=== PATIENT | female | born 1930 | race Caucasian/White ===

== ENCOUNTER 2016-12-13 10:29 | Emergency (ER) | payer MEDICARE, BC ==
[~2016-12-13] VITALS: Ht 149.9 cm; Wt 60.5 kg
[~2016-12-13 10:29] MED LIST: ALEN70TA15 PO; ATOR10TA23 PO; HYDR25TA6 PO; METO50TA16 PO; OMEG1CAP2 PO; PANT40TA3 PO; SYN75 PO
[2016-12-13 10:33] VITALS: Ht 149.9 cm; Wt 60.5 kg
[2016-12-13 13:19] LABS: URINE BLOOD (Dip) POC Negative (NEGATIVE)
[2016-12-13] MEDS ORDERED: SOD CHLORIDE 0.9% 500 ML IV STA (13:21)
[2016-12-13 13:34] LABS: BASOPHILS % 0.3 % (0.0-2.0); EOSINOPHILS % 0.1 % (0.0-7.0); HEMATOCRIT 38.7 % (37.0-47.0); HEMOGLOBIN 12.8 g/dl (12.0-16.0); LYMPHOCYTES % 6.7 % (15.0-51.0); MEAN CORPUSCULAR HEMOGLOBIN 28.9 pg (29.0-33.0); MEAN CORPUSCULAR HGB CONC 33.1 g/dl (32.0-37.0); MEAN CORPUSCULAR VOLUME 87.4 fl (82.0-101.0); MEAN PLATELET VOLUME 9.6 fl (7.4-10.4); MONOCYTE # 0.4 10^3/ul (0.3-0.9); MONOCYTES % 2.6 % (0.0-11.0); NEUTROPHIL # 13.9 10^3/ul (1.6-7.5); NEUTROPHILS % 89.8 % (39.0-77.0); PLATELET COUNT 183 10^3/UL (140-415); RED BLOOD COUNT 4.43 10^6/ul (4.20-5.40); RED CELL DISTRIBUTION WIDTH 13.2 % (11.5-14.5); WHITE BLOOD COUNT 15.5 10^3/ul (4.8-10.8)
--- NOTE | 2016-12-13 13:34 | ERA ---
ER Documentation Chief Complaint Date/Time DATE: 12/13/16 TIME: 13:31 Chief Complaint dysuria x 10 days, taking macrobid, c/o chills and shaking this morning HPI This is a 86-year-old female who is currently being treated for a UTI diagnosed by urologist yesterday. She is only taking 1 dose of Macrobid last night as her first dose. The patient states she woke this morning and had some chills and thought she might be getting a fever so she took her temperature and it was "normal". She says her hands and feet feel cold. The patient is taking Synthroid for hypothyroidism. Patient also has a history of iron deficiency anemia. She did not have any chest pain shortness of breath no abdominal pain nausea vomiting diarrhea. She says she is constantly constipated, but had a normal bowel movement this morning. She denies any cough. She has no complaints of weakness or focal neurological complaints. The patient's mother is a physician and brought her in to be checked out to rule out sepsis ROS All systems reviewed and are negative except as per history of present illness. Medications Home Meds Reported Medications Metoprolol Succinate* (Toprol XL*) 50 Mg Tab.er.24h, 50 MG PO DAILY, TAB 06/01/14 Pantoprazole* (Protonix*) 40 Mg Tablet.dr, 40 MG PO DAILY, TAB 06/01/14 Levothyroxine Sodium* (Synthroid*) 75 Mcg Tablet, 75 MCG PO DAILY, TAB 06/01/14 [place]-3 Acid Ethyl Esters (Lovaza) 1 Gm Capsule, 4 GM PO DAILY, CAP 06/01/14 Alendronate Sodium (Fosamax) 70 Mg Tablet, 70 MG PO weekly-thursday03/23/12 Atorvastatin (Lipitor) 10 Mg Tablet, 10 MG PO HS 03/23/12 Hydrochlorothiazide (Hydrochlorothiazide) 25 Mg Tablet, 25 MG PO HS 03/23/12 Allergies Allergies: Coded Allergies: Penicillins (Verified Allergy, Intermediate, 06/01/14) Sulfa (Sulfonamide Antibiotics) (Verified Allergy, Intermediate, 06/01/14) PMhx/Soc History of Surgery: Yes (d&c feb 2012) Anesthesia Reaction: No Hx Neurological Disorder: No Hx Respiratory Disorders: Yes (asthma) Hx Cardiac Disorders: No Hx Psychiatric Problems: No Hx Miscellaneous Medical Probl: Yes (GI bleed and anemia in 2012) Hx Alcohol Use: No Hx Substance Use: No Hx Tobacco Use: No FmHx Family History: No coronary disease Physical Exam Vitals Vital Signs Date Time Temp Pulse Resp B/P Pulse Ox O2 Delivery O2 Flow Rate FiO2 12/13/16 10:33 98.3 106 18 141/63 98 Physical Exam Const: Well-developed, well-nourished Head: Atraumatic, normocephalic Eyes: Normal Conjunctiva, PERRLA, EOMI, normal sclera, no nystagmus ENT: Normal External Ears, Nose and Mouth, moist mucus membranes. Neck: Full range of motion. No meningismus, no lymphadenopathy. Resp: Clear to auscultation bilaterally, no wheezing, rhonchi, rales Cardio: Regular rate and rhythm, no murmurs, S1 S2 present Abd: Soft, non tender x 4, non distended. Normal bowel sounds, no guarding or rebound, no pulsitile abdominal masses or bruits Skin: No petechiae or rashes, no ecchymosis , no maculopapular rash Back: No midline or flank tenderness Ext: No cyanosis, or edema, FROM x 4, normal inspection, neurovascularly intact x 4, hands are slightly cool, cap refill less than 2 seconds Neur: Awake and alert, STR 5/5 x 4, sensation intact x 4, no focal findings, cerebellum intact Psych: Normal Mood and Affect Results 24 hrs Laboratory Tests Test 12/13/16 13:24 Bedside Urine pH (LAB) 6.0 Bedside Urine Protein (LAB) Trace Bedside Urine Glucose (UA) Negative Bedside Urine Ketones (LAB) Negative Bedside Urine Blood Negative Bedside Urine Nitrite (LAB) Negative Bedside Urine Leukocyte Esterase (L Trace Current Medications Medications (Trade) Dose Ordered Sig/[place] Route PRN Reason Start Time Stop Time Status Last Admin Dose Admin Sodium Chloride (NS) 500 ml @ 500 mls/hr Q1H STAT IV 12/13/16 13:21 12/13/16 14:20 Departure Diagnosis: Primary Impression: Dysuria Condition: Stable MALLORIE NIELSEN DO Dec 13, 2016 13:34
[2016-12-13 13:50] LABS: ADD UMIC YES; UR ASCORBIC ACID NEGATIVE (NEGATIVE); UR BACTERIA FEW /HPF (NONE SEEN); UR BILIRUBIN (Dip) NEGATIVE (NEGATIVE); UR BLOOD (Dip) NEGATIVE (NEGATIVE); UR CLARITY SLIGHTLY CLOUDY (CLEAR); UR COLOR YELLOW (YELLOW); UR GLUCOSE (Dip) NEGATIVE (NEGATIVE); UR KETONES (Dip) NEGATIVE (NEGATIVE); UR LEUKOCYTE ESTERASE (Dip) TRACE Leu/ul (NEGATIVE); UR NITRITE (Dip) NEGATIVE (NEGATIVE); UR RBC 0 /HPF (0-5); UR SPECIFIC GRAVITY (Dip) 1.024 (1.003-1.030); UR TOTAL PROTEIN (Dip) NEGATIVE (NEGATIVE); UR UROBILINOGEN (Dip) NEGATIVE (NEGATIVE)
[2016-12-13 13:54] LABS: ALBUMIN 4.3 g/dl (3.3-4.9); ALBUMIN/GLOBULIN RATIO 1.38; BILIRUBIN,INDIRECT 1.2 mg/dl (0-1.1); BILIRUBIN,TOTAL 1.2 mg/dl (0.2-1.3); CALCIUM 10.2 mg/dl (8.4-10.2); CREATININE 0.88 mg/dl (0.44-1.00); POTASSIUM 3.3 mmol/L (3.5-5.1); TOTAL PROTEIN 7.4 g/dl (6.1-8.1)
[2016-12-13 14:11] LABS: FREE T3 3.33 pg/ml (2.77-5.27)
[2016-12-13 14:25] LABS: THYROID STIMULATING HORMONE 0.147 MIU/L (0.465-4.680)
[2016-12-13] MEDS ORDERED: LEVO100T87 PO (14:31)
[2016-12-13] MEDS ORDERED: PANT20TA3 PO (14:32)
[2016-12-13] MEDS ORDERED: LIOT5TAB3 PO (14:32)
[2016-12-13] MEDS ORDERED: TRIA15CR55 TOP (14:33)
[2016-12-13] MEDS ORDERED: FOLI-49 PO (14:34)
[2016-12-13] MEDS ORDERED: CHOL400T10 PO (14:34)
[2016-12-13] MEDS ORDERED: ASPI81TA3 PO (14:34)
[2016-12-13 14:59] VITALS: BP 145/56; PULSE 69; RESP 16
[2016-12-13] MEDS ORDERED: CEPH-443 PO (15:47)
--- NOTE | 2016-12-13 15:51 | QN ---
Documentation Comment The patient was endorsed to me pending laboratory analysis and chest x-ray. The patient does have leukocytosis but is currently being treated for UTI with only 1 dose of Macrobid. This is to be expected. No anion gap acidosis to suggest sepsis. The plan from the prior physician was to discharge the patient. The patient is concerned that the Macrobid is making her feel ill. I believe the Macrobid is appropriate however the patient has tolerated cephalosporins in the past. If the patient does not tolerate Macrobid she can transition to Keflex. Urine culture sent. Chest x-ray: I reviewed and interpreted a 1 view of the chest Mediastinum: No enlargement Cardiac silhouette: No cardiomegaly Airspace: Clear lung patterson bilaterally without evidence of pneumothorax Bones: No evidence of fracture I spoke to the patient's daughter who is a physician who feels comfortable with the plan of care. The patient to return for any fevers or worsening symptoms. The patient is discharged based on Dr. Longoria' documentation and plan of care SHEA GARCIA MD Dec 13, 2016 15:51
[2016-12-13 15:56] VITALS: TEMP 97.9
--- NOTE | 2016-12-13 16:57 | RADRPT ---
PROCEDURE: XR Chest. CLINICAL INDICATION: Abdominal pain TECHNIQUE: Anterior chest x-ray. COMPARISON: CT abdomen dated 09/10/2008 FINDINGS: The lungs are clear. No pleural effusion identified. There is no evidence of pneumothorax. 8 cm retrocardiac density is likely hiatal hernia seen on previous CT exam, larger than on prior exa m. There is atherosclerotic calcification of the aorta. The heart size is large. The soft tissues are normal. No free air under the diaphragms. Osseous structures are unremarkable. IMPRESSION: 1. No acute disease is seen in the chest. 2. Large hiatal hernia increased from prior exam. 3. Cardiomegaly. 4. Atherosclerotic calcification of the aorta. 5. No evidence of bowel obstruction or perforation. RPTAT: QQ .Nikolas Bello MD, Date Time Electronically viewed and signed by .Nikolas Bello MD, on 12/13/2016 16:56 .M/
== END 2016-12-13 15:57 | disposition home or self-care (01) ==
LOC: E/R 10:29
DX: R30.0 Dysuria (principal); R40.2142 Coma scale, eyes open, spontaneous, at arrival to emergency department; R40.2252 Coma scale, best verbal response, oriented, at arrival to emergency department; R40.2362 Coma scale, best motor response, obeys commands, at arrival to emergency department; J45.909 Unspecified asthma, uncomplicated
CPT/HCPCS: 71010; 80053; 81001; 84439; 84443; 84481; 85025; 87086; J7040; 36415; 81003; 96360; 96361

== ENCOUNTER 2017-07-08 17:10 | Emergency (ER) | END 2017-07-08 20:32 | disposition left against medical advice (07) ==